=== PATIENT | female | born 1950 | race Caucasian/White ===

== ENCOUNTER → 2016-11-18 | Outpatient (CLI) | payer MEDICARE ==
[~2016-11-18] MED LIST: ATOR10TA60 PO; BENZOCAINE ONE 20% MUCOSAL SPRAY.; BIFI4CAP PO; CALC-56 PO; CARV3.122 PO; FAMO-63 PO; FENTANYL PF 100 MCG/2 ML VIAL. IV PRN; HYDROMORPHONE 2 MG/ML VIAL. IV PRN; IV RINGERS,LACTATED 1000ML 1,000 ML IV SCH; LIDOCAINE 1% 1 ML SYRINGE. ID PRN; LIDOCAINE 2% 100 MG/5 ML DISP.SYRIN. ONE; LIDOCAINE 2% TOPICAL JELLY 30GM TUBE. TP ONE; LIDOCAINE 2% VISCOUS 15 ML SOLUTION. ONE; MAGN400T22 PO; MORPHINE SULFATE 2 MG/ML DISP.SYRIN. IV PRN; ONDANSETRON PF 4 MG/2 ML VIAL. IV PRN; PHENYLEPHRINE in 0.9% NACL PF 1 MG/10 ML DISP.SYRIN. IV ONE; PROCHLORPERAZINE 10 MG/2 ML VIAL. IV PRN; PROPOFOL 20 ML IV ONE; gabapentin PO; losartan PO; nortriptyline PO; omeprazole PO; prozac PO; tylenol arthritis
[2016-11-18 11:51] VITALS: BP 159/87
--- NOTE | 2016-11-18 13:22 | CARD ---
APPROVED REPORT EXAM: Transesophageal echocardiogram with color flow Doppler. INDICATION Aortic Valve Disease Reason For Test : Evaluation of dyspnea, valvular heart disease PROCEDURE After obtaining informed consent, patient underwent transesophageal echo in the PACU. Type of Sedation : General Anesthesia Sedation was provided by anesthesiologist, see EMR for medications administered. Sedation was administered by eDnis Cazares CRNA.. Sedation was achieved with Propofol 100mg intravenously. Sedation was achieved with Lidocaine 40 intravenously. Transesophageal probe was inserted and advanced into esophagus by Karl Bridges MD. The SARA was performed without complications. Throughout the procedure, the blood pressure, pulse oximetry, cardiac rhythm, and rate were monitored . The patient tolerated the procedure without adverse effects. Recovery from conscious sedation was une ventful and vital signs were stable. LEFT VENTRICLE The left ventricle is normal size. There is normal left ventricular wall thickness. Left ventricle sy stolic function is low normal. The Ejection Fraction is 40-45%. There is mild global hypokinesis of t he left ventricle. RIGHT VENTRICLE The right ventricle is normal size. The right ventricular systolic function is normal. ATRIA The left atrium size is normal. The right atrium size is normal. The interatrial septum is intact wit h no evidence for an atrial septal defect or patent foramen ovale as noted on 2-D or Doppler imaging. There is no thrombus noted in the left atrial appendage. AORTIC VALVE The aortic valve is trileaflet. Doppler and Color Flow revealed mild aortic regurgitation. There is n o significant aortic valvular stenosis. MITRAL VALVE The mitral valve is normal in structure. There is no mitral valve stenosis. Doppler and Color Flow re vealed trace to mild mitral regurgitation. TRICUSPID VALVE The tricuspid valve is normal in structure and function. Doppler and Color Flow revealed no tricuspid valve regurgitation noted. PULMONIC VALVE The pulmonary valve is normal in structure and function. Doppler and Color Flow revealed no pulmonic valvular regurgitation. GREAT VESSELS The aortic root is normal in size. The ascending aorta is normal in size. Normal pulmonary venous argenis w (Doppler). The IVC was visualized and appears normal in size. The SVC was visualized and appears no rmal in size. PERICARDIAL EFFUSION There is no pleural effusion. Critical Notification Critical Value: No <Conclusion> Left ventricle systolic function is low normal. The Ejection Fraction is 40-45%. There is mild global hypokinesis of the left ventricle. Doppler and Color Flow revealed mild aortic regurgitation.
== END | disposition home or self-care (01) ==
LOC: ECHO 09:35
PROVIDERS: ATTEND Internal Medicine Cardiovascular Disease
DX: I42.9 Cardiomyopathy, unspecified (principal); I35.8 Other nonrheumatic aortic valve disorders; R06.00 Dyspnea, unspecified; I35.1 Nonrheumatic aortic (valve) insufficiency
CPT/HCPCS: 76376; 93312; 93325; J2370; J2704; J7120

== ENCOUNTER → 2021-02-14 | Outpatient (CLI) | payer MEDICARE, OTHER ==
[2016-11-18 11:51] VITALS: BP 159/87
[~2021-02-14] MED LIST changes: -BENZOCAINE ONE 20% MUCOSAL SPRAY.; +CARV3.1210 PO; -CARV3.122 PO; -FENTANYL PF 100 MCG/2 ML VIAL. IV PRN; +GADOTERATE 7.5 MMOL/15ML VIAL. IVP ONE; -HYDROMORPHONE 2 MG/ML VIAL. IV PRN; -IV RINGERS,LACTATED 1000ML 1,000 ML IV SCH; -LIDOCAINE 1% 1 ML SYRINGE. ID PRN; -LIDOCAINE 2% 100 MG/5 ML DISP.SYRIN. ONE; -LIDOCAINE 2% TOPICAL JELLY 30GM TUBE. TP ONE; -LIDOCAINE 2% VISCOUS 15 ML SOLUTION. ONE; -MORPHINE SULFATE 2 MG/ML DISP.SYRIN. IV PRN; -ONDANSETRON PF 4 MG/2 ML VIAL. IV PRN; -PHENYLEPHRINE in 0.9% NACL PF 1 MG/10 ML DISP.SYRIN. IV ONE; -PROCHLORPERAZINE 10 MG/2 ML VIAL. IV PRN; -PROPOFOL 20 ML IV ONE
--- NOTE | 2021-02-14 15:13 | KCIC ---
EXAM: Brain MRI with and without contrast. HISTORY: Cognitive impairment. Word finding difficulty. TECHNIQUE: Multiplanar, multisequence magnetic resonance imaging of the brain was performed prior to and following the administration of intravenous contrast. COMPARISON: None. FINDINGS: There is no restricted diffusion to suggest acute or subacute infarction. There is no susce ptibility effect to suggest hemorrhage. There is no mass effect or midline shift. There is no hydroce phalus. There is mild age-appropriate cerebral volume loss. There are multiple scattered focal areas of signal change within the cerebral white matter and lyle, likely due to chronic small vessel diseas e. There aren't suspected small posterior right frontal lobe cortical infarcts. The orbits are unremarkable. The paranasal sinuses and mastoid air cells are clear. There are normal flow voids within the cerebral vessels. There is no suspicious calvarial lesion. There is no suspicio us enhancing lesion. The posterior pituitary bright spot appears ectopic along the superior aspect of the posterior sella. The pituitary is otherwise unremarkable. IMPRESSION: 1. No acute intracranial finding. 2. Bilateral cerebral white matter changes, likely due to chronic small vessel disease in a patient o f this age. 3. 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 4. Ectopic posterior pituitary bright spot. This is likely incidental and of no clinical significance in the absence of endocrinopathy. Electronically signed by: Destinee Payan MD (02/14/2021 3:10 PM) [id number]
== END ==
LOC: KCIC MRI 13:07
PROVIDERS: ATTEND Family Medicine
DX: R47.89 Other speech disturbances (principal); G31.84 Mild cognitive impairment of uncertain or unknown etiology; Z98.890 Other specified postprocedural states
CPT/HCPCS: 70553; A9575